=== PATIENT | female | born 1960 | race Caucasian/White ===

== ENCOUNTER 2021-02-02 18:05 | Emergency (ER) | payer OTHER ==
[~2021-02-02 18:05] MED LIST: ACETAMINOPHEN325 MG PO; ANORO ELLIPTA1 EACH INH; BENTYL20 MG PO; BIOTIN PLUS KE1 EACH PO; CENTRUM COMPLE1 EACH PO; COZAAR50 MG PO; DILTIAZEM ER300 M1 PO; GLUCOPHAGE850 MG PO; GOLD BOND MEDI TOP; LASIX40 MG PO; LAXATIVE OF CHOICE; LEVEMIR VI100 UNITS/ SC; MELATONIN5 M2 PO; MICONAZOLE 2% P85 GM TOP; MOBIC15 MG PO; NEURONTIN100 M1 PO; NORCO 5-325 TA1 EACH PO; NOVOLOG VI100 UNIT/1 SC; OMEPRAZOLE 20MG20 MG PO; PERCOCET 5-3251 EACH PO; PERCOCET 5/3251 TAB PO; PRAVASTATIN SOD10 MG PO; SINGULAIR10 MG PO; TRESIBA FL100 UNIT/1 SC; VENTOLIN HFA IN18 GM INH; VITAMIN B-121000 MC1 PO; VITAMIN B-650 MG PO; XARELTO10 MG PO; ZANAFLEX2 MG PO; ZANTAC150 MG PO; ZESTRIL40 MG PO; ZOCOR40 MG PO; ZOLOFT100 MG PO; ZYPREXA 5MG TABL5 MG PO
[2021-02-02 22:58] LABS: BASOPHIL 0.5 % (0-2); EOSINOPHIL 1.1 % (0-5); HCT 44.4 % (37.0-47.0); HGB 14.8 g/dl (12.5-16.0); LYMPHOCYTE 17.3 % (15-48); MCH 28.6 pg (25.0-31.0); MCHC 33.3 g/dL (32.0-36.0); MCV 85.7 fL (78.0-100.0); MONOCYTE 15.1 % (0-12); MPV 9.9 fL (6.0-9.5); NEUTROPHIL 65.8 % (41-80); NRBC 0; PLT 251 K/uL (150-400); RBC 5.18 M/uL (4.20-5.40); RDW 13.8 % (11.5-14.0); WBC 8.3 K/uL (4.0-10.5)
[2021-02-02 23:17] LABS: ALBUMIN 3.1 g/dL (3.4-5.0); BUN/CREAT RATIO (CALC) 18.3 RATIO; CREATININE 1.2 mg/dL (0.51-0.95); GLOBULIN (CALCULATION) 4.5 g/dL; POTASSIUM 3.7 mmol/L (3.5-5.1); TOTAL PROTEIN 7.6 g/dL (6.4-8.2)
[2021-02-02 23:18] LABS: LACTIC ACID 1.2 mmol/L (0.4-1.9)
== END 2021-02-03 08:11 | disposition other institution (70) ==
LOC: FER 18:05
PROVIDERS: Emergency Medicine Emergency Medical Services
DX: K40.30 Unilateral inguinal hernia, with obstruction, without gangrene, not specified as recurrent (principal); E11.9 Type 2 diabetes mellitus without complications; I10 Essential (primary) hypertension; Z88.8 Allergy status to other drugs, medicaments and biological substances; Z20.822 Contact with and (suspected) exposure to COVID-19
CPT/HCPCS: 36415; 70450; 80053; 83605; 83690; 84145; 85025; J1170; J2270; J2405; J2550; J7030; U0002